=== PATIENT | female | born 1980 | race Caucasian/White ===

== ENCOUNTER 2024-03-21 06:24 | Day surgery (SDC) | payer OTHER, SELFPAY ==
[2024-03-21] VITALS (8 sets, daily range): BP systolic 104–124; BP diastolic 66–86; BMI 39.9
[2024-03-21] MEDS: DILAUDID 0.5 MG IV (08:47)
--- NOTE | 2024-03-21 09:42 | SUR.PHASEI ---
medicated x1 in pacu with dilaudid for headache ' like a bad sinus headache' 02/08 - relieved with one dose of dilaudid to 08/08. taking ice chips po.
Dr Daron márquezay with discharge with sats 93- 95%. encourage smoking cessation.
== END 2024-03-21 09:46 | disposition home or self-care (01) ==
LOC: SDS 06:24
PROVIDERS: ATTENDING PHYSICIAN Otolaryngology
PROC: 09BM8ZZ Excision of Nasal Septum, Via Natural or Artificial Opening Endoscopic (ICD-10-PCS; 2024-03-21)
PROC: 09TL8ZZ Resection of Nasal Turbinate, Via Natural or Artificial Opening Endoscopic (ICD-10-PCS; 2024-03-21)
DX: J34.3 Hypertrophy of nasal turbinates (principal); J34.2 Deviated nasal septum; I10 Essential (primary) hypertension; F17.200 Nicotine dependence, unspecified, uncomplicated; Z88.0 Allergy status to penicillin
CPT/HCPCS: 30520; 30140

== ENCOUNTER → 2024-04-13 18:47 | Outpatient (REF) | payer OTHER, SELFPAY | LOC: MRI 3T 18:47 | PROVIDERS: ATTENDING PHYSICIAN Otolaryngology | DX: H93.A3 Pulsatile tinnitus, bilateral (principal) | CPT/HCPCS: 70543; 70553; A9575 ==